=== PATIENT | male | born 1955 | race Caucasian/White ===

== ENCOUNTER 2017-09-30 07:08 | Day surgery (SDC) | payer MEDICARE, OTHER ==
[2015-01-02 07:49] VITALS: BMI 29.7
[2017-09-30 09:30] LABS: CALCIUM 8.6 mg/dl (8.6-10.4)
[2017-09-30] MEDS ORDERED: ceFAZolin IV 2 gm in Dextrose 2 GM/50 ML BAG IVPB ONE (09:36)
[2017-09-30] MEDS ORDERED: HEPARIN-NS 5,000 UNITS/500 ML 5,000 UNIT/500 ML BAG IV ONE ×2 (09:36→09:57)
[2017-09-30] MEDS ORDERED: Iohexol 240 200 ML ONE (09:37)
[2017-09-30] MEDS ORDERED: Midazolam 2 MG/2 ML VIAL ONE (10:17)
[2017-09-30] MEDS ORDERED: Propofol 10 mg/ml Inj (20 ML) ONE (10:17)
[2017-09-30] MEDS ORDERED: Sodium Chloride 0.9% 1,000 ML IV ONE (10:30)
[2017-09-30] MEDS ORDERED: Succinylcholine Chloride 20 mg/ml Syr (5 ml) IV ONE (10:49)
[2017-09-30] MEDS ORDERED: Rocuronium 10 mg/ml (10 ml) ONE (11:08)
[2017-09-30] MEDS ORDERED: HYDROmorphone 0.5 mg/0.5 ml ISec IVP PRN (13:16)
[2017-09-30] MEDS ORDERED: Oxycodone/Acetaminophen 5/325 mg Tab PO ONE (13:21)
--- NOTE | 2017-09-30 13:25 | PCM.SURG1 ---
Surgeon's Initial Post Op Note - Surgeon's Notes Surgeon: Dr. Coyle Emissions Testing Technician: PGY1 Type of Anesthesia: General Endo Pre-Operative Diagnosis: End stage renal disease, malfunctioning R. upper extremity AV fistula Operative Findings: Stenosed RIJ. for details see op note Post-Operative Diagnosis: as above Operation Performed: Right subclavian permacath placement. Revision of right arm AV fistula w/ hybrid graft w/ flouroscopy Specimen/Specimens Removed: none Estimated Blood Loss: EBL {In ML}: 300 Drains Used: No Drains Date of Surgery/Procedure: 09/30/17 Time of Surgery/Procedure: 13:27
[2017-09-30] MEDS ORDERED: Sodium Chloride 0.9% 1,000 ML IV SCH (13:30)
--- NOTE | 2017-09-30 13:46 | RAD ---
HISTORY: s/p permacath placement COMPARISON: 07/03/2014 FINDINGS: LUNGS: No active pulmonary disease. PLEURA: No significant pleural effusion identified, no pneumothorax apparent. CARDIOVASCULAR: Cardiomegaly. No evidence of acute, significant cardiovascular disease. Venous access catheter in satisfactory position. OSSEOUS STRUCTURES: No significant abnormalities. VISUALIZED UPPER ABDOMEN: Normal. OTHER FINDINGS: None. IMPRESSION: No adverse findings/no pneumothorax following PermCath placement.
--- NOTE | 2017-09-30 15:02 | OP ---
PROCEDURE DATE: 09/30/2017. PREOPERATIVE DIAGNOSES: 1. Renal failure. 2. Pseudoaneurysm, right arm. PROCEDURES: 1. Placement of right subclavian dialysis catheter. 2. Placement of hybrid AV shunt, right arm with revision of existing aneurysmal fistula. SURGEON: Alvaro Coyle MD SERVICE SPECIALIST: Dr. Pan. ANESTHESIOLOGIST: Dr. Anguiano. 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 OPERATIVE FINDINGS: Initially we attempted to place a jugular vein catheter, the jugular vein was patent on ultrasound exam; however, as we attempted to pass through centrally, we could not cross an occlusion and we abandoned that part of the procedure. Given the circumstances, previous placement on the left side and potential need for new access on the left side, I then placed a right subclavian catheter. Using micropuncture technique, ultrasound guidance and fluoroscopy after this when secured in position with good flow, it was secured to the skin, tunneled appropriately, brought down on the right chest wall and secured to the skin. We then carried out of a placement of a hybrid shunt on the right arm, the patient had existing fistula which was aneurysmal over 5 cm in size with some small amount of ulceration over the most proximal aneurysm. We dissected out an undilated portion of this. We controlled this. We then used ultrasound guidance and punctured towards the venous site above the previously placed stent and then deployed a 6 x 8 cm graft here. This was then brought down to the arterial site and anastomosed in an end to side fashion to this proximal portion of the existing fistula. At the completion, we then carried out balloon dilatation of the venous anastomosis where the previous stent had been placed and this showed excellent flow without any residual stenosis. So, in the end, right subclavian catheter, right subclavian site was used because of the less of a multiple poor choices and placement of a hybrid shunt in the right arm from the previous fistula to the right axillary vein. Alvaro Coyle Jr., MD cc: .
[2017-09-30 15:36] VITALS: RESP 16
--- NOTE | 2017-09-30 16:01 | RAD ---
PROCEDURE: Intraoperative Fluoroscopy. HISTORY: RENAL FAILURE FINDINGS: Fluoroscopic assistance was provided. 266.2 seconds fluoroscopy time utilized during this procedure. Radiation dose = 1.6 mGy. Please refer to the operative report from [facility].
--- NOTE | 2017-09-30 16:02 | RAD ---
PROCEDURE: Intraoperative Fluoroscopy. HISTORY: RENAL FAILURE FINDINGS: Fluoroscopic assistance was provided. 166.2 seconds fluoroscopy time utilized during this procedure. Radiation dose = 1.63 mGy. Please refer to the operative report from [facility].
[2017-09-30 16:30] VITALS: BP 158/81; PULSE 80; TEMP 97.6; O2SAT 95
== END 2017-09-30 16:40 | disposition home or self-care (01) ==
LOC: C.SDS 07:08
PROVIDERS: ATTEND Surgery Vascular Surgery
DX: T82.590A Other mechanical complication of surgically created arteriovenous fistula, initial encounter (principal); N18.6 End stage renal disease; I72.8 Aneurysm of other specified arteries; Z79.4 Long term (current) use of insulin; Z79.899 Other long term (current) drug therapy; M19.90 Unspecified osteoarthritis, unspecified site; J45.909 Unspecified asthma, uncomplicated; E11.319 Type 2 diabetes mellitus with unspecified diabetic retinopathy without macular edema; I12.0 Hypertensive chronic kidney disease with stage 5 chronic kidney disease or end stage renal disease; E11.22 Type 2 diabetes mellitus with diabetic chronic kidney disease; Z99.2 Dependence on renal dialysis; H54.62 Unqualified visual loss, left eye, normal vision right eye
CPT/HCPCS: 36415; 36556; 36832; 71045; 76937; 77001; 80048; 82948; C1725; C1750; C1768; C1769; C1894; J0690; J1644; J2704; J3010; J7030; J7040